=== PATIENT | female | born 1990 | race Caucasian/White ===

== ENCOUNTER 2022-01-26 15:23 | Emergency (ER) | payer OTHER ==
[~2022-01-26 15:23] MED LIST: VIBRAMYCIN100 MG PO
[2022-01-26] MEDS ORDERED: ROBAXIN500 MG PO (16:19)
[2022-01-26] MEDS ORDERED: MOTRIN600 MG PO (16:19)
== END 2022-01-26 16:40 | disposition home or self-care (01) ==
LOC: FER 15:23
DX: S29.012A Strain of muscle and tendon of back wall of thorax, initial encounter (principal); F17.210 Nicotine dependence, cigarettes, uncomplicated; X50.1XXA Overexertion from prolonged static or awkward postures, initial encounter; Z28.310 Unvaccinated for COVID-19
CPT/HCPCS: J1885

== ENCOUNTER 2022-04-04 07:39 | Emergency (ER) | payer OTHER ==
[~2022-04-04 07:39] MED LIST changes: +MOTRIN600 MG PO; +ROBAXIN500 MG PO
[2022-04-04] MEDS ORDERED: VENTOLIN HFA18 GM INH (10:51)
[2022-04-04] MEDS ORDERED: MUCINEX 600MG600 MG PO (10:51)
[2022-04-04] MEDS ORDERED: NAPROXEN500 MG PO (10:51)
== END 2022-04-04 11:00 | disposition home or self-care (01) ==
LOC: FER 07:39
DX: B34.9 Viral infection, unspecified (principal); Z20.822 Contact with and (suspected) exposure to COVID-19; Z28.310 Unvaccinated for COVID-19
CPT/HCPCS: 99284; U0002

== ENCOUNTER 2022-04-22 10:58 | Emergency (ER) | payer OTHER ==
[~2022-04-22 10:58] MED LIST changes: +MUCINEX 600MG600 MG PO; +NAPROXEN500 MG PO; +VENTOLIN HFA18 GM INH
[2022-04-22 11:54] LABS: BASOPHIL 0.5 % (0-2); EOSINOPHIL 0.6 % (0-5); HCT 40.9 % (37.0-47.0); HGB 13.6 g/dl (12.5-16.0); LYMPHOCYTE 21.3 % (15-48); MCHC 33.3 g/dL (32.0-36.0); MCV 90.3 fL (78.0-100.0); MONOCYTE 7.2 % (0-12); MPV 8.5 fL (6.0-9.5); NEUTROPHIL 70.1 % (41-80); NRBC 0; PLT 258 K/uL (150-400); RBC 4.53 M/uL (4.20-5.40); RDW 12.9 % (11.5-14.0); WBC 9.9 K/uL (4.0-10.5)
[2022-04-22 12:17] LABS: ALBUMIN 3.5 g/dL (3.4-5.0); ALKALINE PHOSHATASE 85 U/L (46-116); ALT 26 U/L (14-59); AST 20 U/L (15-37); BILIRUBIN - TOTAL 0.2 mg/dL (0.2-1.0); BUN 12 mg/dL (7-18); BUN/CREAT RATIO (CALC) 21.1 RATIO; CHLORIDE 102 mmol/L (98-107); CO2 (BICARBONATE) 24 mmol/L (21-32); CREATININE 0.57 mg/dL (0.51-0.95); GLOBULIN (CALCULATION) 3.8 g/dL; GLUCOSE 96 mg/dL (74-106); POTASSIUM 3.7 mmol/L (3.5-5.1); TOTAL PROTEIN 7.3 g/dL (6.4-8.2)
== END 2022-04-22 12:53 | disposition home or self-care (01) ==
LOC: FER 10:58
PROVIDERS: Emergency Medicine
DX: R22.43 Localized swelling, mass and lump, lower limb, bilateral (principal); Z71.1 Person with feared health complaint in whom no diagnosis is made; Z28.310 Unvaccinated for COVID-19
CPT/HCPCS: 36415; 71046; 80053; 84443; 85025